=== PATIENT | male | born 1980 | race Caucasian/White ===

== ENCOUNTER 2018-04-05 09:52 | Observation (INO) | payer SELFPAY ==
[~2018-04-05 09:52] MED LIST: LIDOCAINE 2% INJ-PF (20 MG/ML) 2 ML AMPUL ONE
[2018-04-05] MEDS ORDERED: NORMAL SALINE 1000 ML 1,000 ML IV ONE (10:16)
--- NOTE | 2018-04-05 10:18 | ER Document Report ---
ED Medical Screen (RME) - General Chief Complaint: Abscess Stated Complaint: RIGHT HIP SWELLING Time Seen by Provider: 04/05/18 10:14 Notes: 38 years old uncontrolled type 1 diabetes presents today with elevated blood sugar and pilonidal cyst. He has an extensive history of pilonidal cyst including multiple surgery as well as drainage. Denies any fever chills or other constitutional symptoms. TRAVEL OUTSIDE OF THE [place] IN LAST 30 DAYS: No - Related Data Allergies/Adverse Reactions: Penicillins Allergy (Severe, Verified 04/05/18 09:55) Hives Past Medical History - Past Medical History Cardiac Medical History: Denies: Hx Coronary Artery Disease, Hx Heart Attack, Hx Hypertension Pulmonary Medical History: Reports: Hx Pneumonia Denies: Hx Asthma, Hx Bronchitis, Hx COPD, Hx Tuberculosis Neurological Medical History: Reports: Hx Seizures - diabetic . Denies: Hx Cerebrovascular Accident Endocrine Medical History: Reports: Hx Diabetes Mellitus Type 1 Musculoskeltal Medical History: Denies Hx Arthritis Psychiatric Medical History: Denies: Hx Depression Past Surgical History: Reports: Hx Bowel Surgery, Hx Oral Surgery - Immunizations Hx Diphtheria, Pertussis, Tetanus Vaccination: Yes Physical Exam - Vital signs Vitals: Temp Pulse Resp BP Pulse Ox 98.5 F 107 H 16 129/78 H 98 04/05/18 10:02 04/05/18 10:02 04/05/18 10:02 04/05/18 10:02 04/05/18 10:02 Course - Vital Signs Vital signs: Temp Pulse Resp BP Pulse Ox 98.5 F 107 H 16 129/78 H 98 04/05/18 10:02 04/05/18 10:02 04/05/18 10:02 04/05/18 10:02 04/05/18 10:02
[2018-04-05 11:17] LABS: VENOUS BLOOD BASE EXCESS 3.3 mmol/L; VENOUS BLOOD HCO3 30.8 mmol/L (20-32); VENOUS BLOOD PCO2 59.3 mmHg (35-63); VENOUS BLOOD PH 7.33 (7.30-7.42)
[2018-04-05 11:19] LABS: ABSOLUTE BASOPHILS # (AUTO) 0.1 10^3/uL (0.0-0.2); ABSOLUTE EOSINOPHILS # (AUTO) 0.4 10^3/uL (0.0-0.6); ABSOLUTE LYMPHOCYTES (AUTO) 2.2 10^3/uL (0.5-4.7); ABSOLUTE MONOCYTES (AUTO) 1.1 10^3/uL (0.1-1.4); ABSOLUTE NEUT (AUTO) 10.7 10^3/uL (1.7-8.2); BASOPHILS % (AUTO) 0.5 % (0-2); HEMATOCRIT 34.3 % (37.9-51.0); HEMOGLOBIN 11.6 g/dL (13.5-17.0); LYMPHOCYTES % (AUTO) 15.2 % (13-45); MEAN CORPUSCULAR HEMOGLOBIN 29.8 pg (27.0-33.4); MEAN CORPUSCULAR VOLUME 88 fl (80-97); MONOCYTES % (AUTO) 7.4 % (3-13); PLATELET COUNT 411 10^3/uL (150-450); RED BLOOD COUNT 3.91 10^6/uL (4.35-5.55); RED CELL DISTRIBUTION WIDTH 14.1 % (11.5-14.0); SEGMENTED NEUTROPHILS % (AUTO) 73.9 % (42-78); TOTAL CELLS COUNTED % (AUTO) 100 %; WHITE BLOOD COUNT 14.5 10^3/uL (4.0-10.5)
[2018-04-05 11:40] LABS: ALANINE AMINOTRANSFERASE 25 U/L (21-72); ALBUMIN 2.9 g/dL (3.5-5.0); ALKALINE PHOSPHATASE 190 U/L (38-126); ANION GAP 9 (5-19); ASPARTATE AMINO TRANSFERASE 17 U/L (17-59); BILIRUBIN,DIRECT 0.2 mg/dL (0.0-0.4); BILIRUBIN,TOTAL 0.2 mg/dL (0.2-1.3); BLOOD UREA NITROGEN 21 mg/dL (7-20); CALCIUM 9.1 mg/dL (8.4-10.2); CARBON DIOXIDE 29 mmol/L (22-30); CHLORIDE 102 mmol/L (98-107); GLUCOSE 264 mg/dL (75-110); POTASSIUM 4.9 mmol/L (3.6-5.0); SODIUM 140.2 mmol/L (137-145); TOTAL PROTEIN 5.8 g/dL (6.3-8.2)
--- NOTE | 2018-04-05 12:03 | ER Document Report ---
ED General <LIZETHSHERITA Maxwell - Last Filed: 04/05/18 13:32> - General Mode of Arrival: Ambulatory Information source: Patient TRAVEL OUTSIDE OF THE [place] IN LAST 30 DAYS: No <JUAN CARLOS WADDELL - Last Filed: 04/05/18 14:03> - General Chief Complaint: Abscess Stated Complaint: RIGHT HIP SWELLING Time Seen by Provider: 04/05/18 10:14 Notes: Patient is a 38-year-old male with type 1 diabetes and history of recurrent perirectal abscesses presents emergency department complaining of rectal pain and swelling onset the last few days. Patient states he had a rectal drain placed approximately 1-2 years ago due to having recurrent perirectal abscesses. He states he began to have worsening pain and swelling around the area of his rectal drain over the last couple of days, further stating the initial swelling was approximately the size of a quarter that has significantly worsened. Patient states he has not seen anyone regarding his rectal fistula in over a year due to his provider leaving. Patient health up with Dr. Erickson concerning his diabetes. (JUAN CARLOS WADDELL) - Related Data Allergies/Adverse Reactions: Penicillins Allergy (Severe, Verified 04/05/18 09:55) Hives Past Medical History - General Information source: Patient - Social History Smoking Status: Current Every Day Smoker Chew tobacco use (# tins/day): No Frequency of alcohol use: None Drug Abuse: None Family History: Reviewed & Not Pertinent Patient has suicidal ideation: No Patient has homicidal ideation: No Pulmonary Medical History: Reports: Hx Pneumonia Neurological Medical History: Reports: Hx Seizures - diabetic Endocrine Medical History: Reports: Hx Diabetes Mellitus Type 1 Past Surgical History: Reports: Hx Bowel Surgery, Hx Oral Surgery - Immunizations Hx Diphtheria, Pertussis, Tetanus Vaccination: Yes <JUAN CARLOS WADDELL - Last Filed: 04/05/18 14:03> Review of Systems - Review of Systems Constitutional: No symptoms reported EENT: No symptoms reported Cardiovascular: No symptoms reported Respiratory: No symptoms reported Gastrointestinal: See HPI Genitourinary: No symptoms reported Male Genitourinary: No symptoms reported Musculoskeletal: See HPI Skin: No symptoms reported Hematologic/Lymphatic: No symptoms reported Neurological/Psychological: No symptoms reported -: Yes All other systems reviewed and negative <JUAN CARLOS WADDELL - Last Filed: 04/05/18 14:03> Physical Exam <SHERITA STANLEY - Last Filed: 04/05/18 13:32> <JUAN CARLOS WADDELL - Last Filed: 04/05/18 14:03> - Vital signs Vitals: Temp Pulse Resp BP Pulse Ox 98.5 F 107 H 16 129/78 H 98 04/05/18 10:02 04/05/18 10:02 04/05/18 10:02 04/05/18 10:02 04/05/18 10:02 - Notes Notes: GENERAL: Alert, interacts well. No acute distress. HEAD: Normocephalic, atraumatic. EYES: Pupils equal, round, and reactive to light. Extraocular movements intact. ENT: Oral mucosa moist, tongue midline. NECK: Full range of motion. Supple. Trachea midline. LUNGS: Clear to auscultation bilaterally, no wheezes, rales, or rhonchi. No respiratory distress. HEART: Regular rate and rhythm. No murmurs, gallops, or rubs. ABDOMEN: Soft, non-tender. Non-distended. Bowel sounds present in all 4 quadrants. EXTREMITIES: Moves all 4 extremities spontaneously. No edema, radial and dorsalis pedis pulses 2/4 bilaterally. No cyanosis. NEUROLOGICAL: Alert and oriented x3. Normal speech. PSYCH: Normal affect, normal mood. SKIN: Warm, dry, normal turgor. No rashes or lesions noted. RECTAL: Right upper buttocks near buttocks cleft contains a round, firm area of swelling and erythema that is approximately 3cm in size, exquisitely tender to palpation. There are drains placed medially to the area of swelling. (JUAN CARLOS WADDELL) Course - Laboratory Result Diagrams: 04/05/18 11:05 04/05/18 11:05 - Consults Dr. Alcantar Time consulted: 12:10 Consulted provider: will come to ER <SHERITA STANLEY - Last Filed: 04/05/18 13:32> - Laboratory Result Diagrams: 04/05/18 11:05 04/05/18 11:05 <JUAN CARLOS WADDELL - Last Filed: 04/05/18 14:03> - Vital Signs Vital signs: Temp Pulse Resp BP Pulse Ox 98.5 F 107 H 16 129/78 H 98 04/05/18 10:02 04/05/18 10:02 04/05/18 10:02 04/05/18 10:02 04/05/18 10:02 - Laboratory Laboratory results interpreted by me: 04/05/18 04/05/18 11:05 11:05 WBC 14.5 H RBC 3.91 L Hgb 11.6 L Hct 34.3 L RDW 14.1 H Absolute Neutrophils 10.7 H BUN 21 H Glucose 264 H Alkaline Phosphatase 190 H Total Protein 5.8 L Albumin 2.9 L Discharge - Discharge Admitting Provider: Surgicalist Unit Admitted: Surgical Floor <SHERITA STANLEY - Last Filed: 04/05/18 13:32> <JUAN CARLOS WADDELL - Last Filed: 04/05/18 14:03> - Discharge Clinical Impression: Abscess of right buttock Condition: Stable Disposition: ADMITTED INPATIENT Scribe Attestation: 04/05/18 12:50 I personally performed the services described in the documentation, reviewed and edited the documentation which was dictated to the scribe in my presence, and it accurately records my words and actions. (SHERITA STANLEY) Scribe Documentation - Scribe Written by Breee:: Velia Carpenter, 04/05/2018 12:14 acting as scribe for :: Lizeth <JUAN CARLOS WADDELL - Last Filed: 04/05/18 14:03>
[2018-04-05] MEDS ORDERED: MORPHINE SULFATE 10 MG/ML INJ IV ONE (12:04)
[2018-04-05] MEDS ORDERED: ONDANSETRON HCL INJ/PF 4 MG/2 ML SDV IV ONE (12:04)
[2018-04-05] MEDS ORDERED: NORMAL SALINE 1000 ML 1,000 ML IV PRN (14:18)
[2018-04-05] MEDS ORDERED: METRONIDAZOLE 500 MG/NS RTU 500 MG/100 ML RTUPB IV ONE (15:00)
[2018-04-05] MEDS ORDERED: CIPROFLOXACIN 400 MG/D5W RTU 400 MG/200 ML RTUPB IV ONE (15:00)
--- NOTE | 2018-04-05 15:06 | PDOC H&P ---
History of Present Illness Admission Date/PCP: 04/05/18 14:01 Patient complains of: left kathe-anal pains History of Present Illness: VANGIE LOPEZ is a 38 year old male who had previous I&D of kathe-anal abscess in 2013 then referred to [facility] colorectal surgeon. DM type 1 since childhood. C/o Pains left kathe-anal area for past 3 days and getting worse today. Denies fever/chills. No diarrhea/constipation. Past Medical History Cardiac Medical History: Denies: Coronary Artery Disease, Myocardial Infarction, Hypertension Pulmonary Medical History: Reports: Pneumonia Denies: Asthma, Bronchitis, Chronic Obstructive Pulmonary Disease (COPD), Tuberculosis Neurological Medical History: Reports: Seizures - diabetic Endocrine Medical History: Reports: Diabetes Mellitus Type 1 Musculoskeltal Medical History: Denies: Arthritis Psychiatric Medical History: Denies: Depression Hematology: Denies: Anemia Past Surgical History Past Surgical History: Reports: Other - I&D kathe-anal abscess Social History Smoking Status: Current Every Day Smoker Frequency of Alcohol Use: None Hx Recreational Drug Use: No Hx Prescription Drug Abuse: No Family History Family History: Reviewed & Not Pertinent Parental Family History Reviewed: Yes Children Family History Reviewed: No Sibling(s) Family History Reviewed.: No Medication/Allergy Home Medications: Insulin Aspart [Novolog Flexpen] 0 unit SUBCUT .SLD SCALE 07/26/14 Insulin Degludec [Tresiba Flextouch U-200] 30 unit SUBCUT QPM 04/05/18 Allergies/Adverse Reactions: Penicillins Allergy (Severe, Verified 04/05/18 09:55) Hives Review of Systems Constitutional: PRESENT: as per HPI Eyes: PRESENT: other - no visual/hearing changes Cardiovascular: PRESENT: other - no chest pains/cough Gastrointestinal: PRESENT: as per HPI Genitourinary: PRESENT: other - no dysuria Neurological: PRESENT: other - no seizures Physical Exam Vital Signs: Temp Pulse Resp BP Pulse Ox 98.5 F 107 H 16 129/78 H 98 04/05/18 10:02 04/05/18 10:02 04/05/18 10:02 04/05/18 10:02 04/05/18 10:02 General appearance: PRESENT: mild distress Head exam: PRESENT: atraumatic Eye exam: PRESENT: conjunctiva pink Mouth exam: PRESENT: moist Neck exam: PRESENT: full ROM Respiratory exam: PRESENT: clear to auscultation zan Cardiovascular exam: PRESENT: RRR Pulses: PRESENT: normal radial pulses Vascular exam: PRESENT: normal capillary refill GI/Abdominal exam: PRESENT: soft Rectal exam: PRESENT: other - has tender swelling left kathe-anal area Extremities exam: PRESENT: full ROM Musculoskeletal exam: PRESENT: ambulatory Neurological exam: PRESENT: alert, oriented to person, oriented to place, oriented to time, oriented to situation Psychiatric exam: PRESENT: appropriate affect Skin exam: PRESENT: normal color, warm Assessment & Plan - Time Time Spent: 30 to 50 Minutes - Inpatient Certification Medical Necessity: Need For IV Fluids, Need for Pain Control, Need for IV Antibiotics, Need for Surgery - Plan Summary Plan Summary: IV antibiotics For I&D in the OR today
[2018-04-05] MEDS: KETOROLAC TROMETHAMINE INJ/PF 30 MG/1 ML SDV IV PRN (16:29)
[2018-04-05] MEDS ORDERED: KETAMINE HCL INJ 500 MG/10 ML VIAL ONE (17:39)
[2018-04-05] MEDS ORDERED: FENTANYL CITRATE INJ/PF 100 MCG/2 ML AMPUL ONE (17:39)
[2018-04-05] MEDS ORDERED: MIDAZOLAM 2 MG/2 ML INJ ONE (17:40)
[2018-04-05] MEDS ORDERED: PROPOFOL INJ 200 MG/20 ML VIAL IV ONE (17:40)
[2018-04-05] MEDS: LIDOCAINE 0.5% INJ-PF (5 MG/ML) 50 ML SDV ONE ×2 (17:58→18:21)
[2018-04-05] MEDS ORDERED: PROMETHAZINE HCL INJ 25 MG/1 ML VIAL IV PRN (18:31)
[2018-04-05] MEDS ORDERED: FENTANYL CITRATE INJ/PF 100 MCG/2 ML AMPUL IV PRN ×3 (18:31)
[2018-04-05] MEDS ORDERED: DIPHENHYDRAMINE HCL 50 MG/ML VIAL IV PRN (18:31)
[2018-04-05] MEDS ORDERED: DEXTROSE 40% GEL 15 GM TUBE PO PRN ×2 (19:46→20:26)
[2018-04-05] MEDS ORDERED: DEXTROSE 40% GEL 15 GM TUBE X 2 PO PRN ×2 (19:46→20:26)
[2018-04-05] MEDS ORDERED: GLUCAGON,HUMAN RECOMB 1 MG INJ IM PRN ×2 (19:46→20:26)
[2018-04-05] MEDS ORDERED: DEXTROSE 50%-WATER SYRINGE 25 GM/50 ML DOSE IV PRN ×2 (19:46→20:26)
[2018-04-05] MEDS ORDERED: DEXTROSE 50%-WATER SYRINGE 12.5 GM/25 ML DOSE IV PRN ×2 (19:46→20:26)
[2018-04-05] MEDS ORDERED: INSULIN LISPRO 100 UNIT/ML 3 ML VIAL SUBCUT PRN (20:26)
[2018-04-05] MEDS: METRONIDAZOLE 500 MG/NS RTU 500 MG/100 ML RTUPB IV SCH (21:56)
--- NOTE | 2018-04-06 01:32 | OPERATIVE REPORT E ---
Operative Report NAME: VANGIE LOPEZ : 1980 AGE: 38Y DATE OF SURGERY: 04/05/2018 ROOM: 425 PREOPERATIVE DIAGNOSES: 1. ABSCESS OF THE RIGHT PERIANAL AREA. 2. HISTORY OF PLACEMENT OF SETON FOR ANAL FISTULA BY DR. VILLA IN 2013. POSTOPERATIVE DIAGNOSES: 1. ABSCESS OF THE RIGHT PERIANAL AREA. 2. HISTORY OF PLACEMENT OF SETON FOR ANAL FISTULA BY DR. VILLA IN 2013. PROCEDURE: Incision and drainage of right perianal abscess. SURGEON: BRYSON MARTÍNEZ M.D. ANESTHESIA: Local MAC. INDICATION: This is a 38-year-old male who apparently had a perianal abscess with placement of vessel loops by Dr. Villa in 2013. The patient then transferred to [facility] and saw a colorectal surgeon there, but has since left. The patient apparently has not seen any other surgeons but Dr. Villa. In the past 3 days the patient is complaining of pain along the right perianal area and went to the ED where he was noted to have an abscess along the right perianal area. DESCRIPTION OF PROCEDURE: After adequate IV sedation the patient was placed in prone position and the perianal was then prepped and draped in the usual sterile fashion. Appropriate timeout was called. Next the abscess area was then injected with 0.5% Xylocaine and a transverse incision made and a gush of purulent material was noted. Cultures were obtained. The abscess cavity appears to be adjacent to a seton or a vessel loop that appears to be not involving the fistula itself. There are actually vessel loops on this right lateral side going towards the mid part of the fistula. A vessel loop was passed from the rectum of the posterior area of the midline going towards the common opening on the mid proximal area which is about 2.5 cm from the fistula opening in the mid rectal area. The vessel loop appears going underneath the sphincter, because of this it was left in place. The one on the right lateral area, since there were 2, one was cut and removed and left the one intact. No other evidence of fistula was noted on the rectal examination. Next the operative site, which was about 2 cm long was then packed with *------* gauze. The depth of the cavity appears to be right at the subcu and on top of the fascia. Sterile 4 x 4s were placed over the I and D site. The plan is to give the patient IV antibiotics and do sitz baths on discharge in a.m. He will be referred back to Dr. Villa in the surgical clinic. DICTATING PHYSICIAN: BRYSON MARTÍNEZ M.D. [id number] PHY#: [id number] ID: [id number] JOB#: [id number] ACCT: [id number] cc:BRYSON MARTÍNEZ M.D. >
[2018-04-06] MEDS ORDERED: CIPROFLOXACIN 400 MG/D5W RTU 400 MG/200 ML RTUPB IV SCH (06:00)
[2018-04-06] MEDS: METRONIDAZOLE 500 MG/NS RTU 500 MG/100 ML RTUPB IV SCH ×2 (06:37→13:18)
[2018-04-06] MEDS: KETOROLAC TROMETHAMINE INJ/PF 30 MG/1 ML SDV IV PRN ×2 (07:00→13:13)
[2018-04-06] MEDS: INSULIN LISPRO 100 UNIT/ML 3 ML VIAL SUBCUT PRN ×2 (07:01→11:52)
[2018-04-06 12:18] VITALS: BP 158/69
== END 2018-04-06 16:01 | disposition home or self-care (01) ==
LOC: ER 09:52 → INTOOBSV 14:01 → EH 14:01 → 4S 15:46
PROVIDERS: ADMIT Surgery; ATTEND Surgery
PROC: 0D9Q0ZZ Drainage of Anus, Open Approach (ICD-10-PCS; principal; 2018-04-05 16:30)
DX: K61.0 Anal abscess (principal); E10.65 Type 1 diabetes mellitus with hyperglycemia; F17.200 Nicotine dependence, unspecified, uncomplicated; Z98.890 Other specified postprocedural states
CPT/HCPCS: 99284; 96361; 96374; 96375; 36415; 87070; 87205; 82010; 82962 ×2; 85025; 87075; 87077; 80053; 87186; 82803; 46050; G0378 ×2; A6266; J2250; J3010; J1815; J3490 ×3; J1885 ×2; J2270; J2405; J7030; J2704; J0744 ×2; 902

== ENCOUNTER 2019-01-16 22:23 | Emergency (ER) | payer SELFPAY ==
--- NOTE | 2019-01-17 02:05 | RADIOLOGY REPORT (SQ) ---
EXAM DESCRIPTION: XR KNEE 4 OR MORE VIEWS COMPLETED DATE/TME: 01/17/2019 00:37 CLINICAL HISTORY: 39 years, Male, bone tenderness COMPARISON: None. FINDINGS: No fracture or dislocation. Soft tissues are unremarkable. IMPRESSION: No acute abnormality.
[2019-01-17] MEDS ORDERED: ACETAMINOPHEN 325 MG TABLET PO ONE (02:09)
--- NOTE | 2019-01-17 02:11 | ER Document Report ---
HPI - HPI Patient complains to provider of: left knee pain Time Seen by Provider: 01/17/19 01:17 Onset: This afternoon Onset/Duration: Sudden, Constant Quality of pain: Achy Severity: Mild Pain Level: 2 Exacerbated by: Standing, Movement, Walking Relieved by: Remaining still Similar symptoms previously: No Recently seen / treated by doctor: No - ROS Systems Reviewed and Negative: Yes All other systems reviewed and negative - MUSCULOSKELETAL Musculoskeletal: REPORTS: Extremity pain - DERM Skin Color: Normal Past Medical History - General Information source: Patient - Social History Smoking Status: Unknown if Ever Smoked Frequency of alcohol use: None Drug Abuse: None Family History: Reviewed & Not Pertinent - Past Medical History Cardiac Medical History: Denies: Hx Coronary Artery Disease, Hx Heart Attack, Hx Hypertension Pulmonary Medical History: Reports: Hx Pneumonia Denies: Hx Asthma, Hx Bronchitis, Hx COPD, Hx Tuberculosis Neurological Medical History: Reports: Hx Seizures - diabetic . Denies: Hx Cerebrovascular Accident Endocrine Medical History: Reports: Hx Diabetes Mellitus Type 1 Renal/ Medical History: Denies: Hx Peritoneal Dialysis Musculoskeletal Medical History: Denies Hx Arthritis Psychiatric Medical History: Denies: Hx Depression Past Surgical History: Reports: Hx Bowel Surgery, Hx Oral Surgery, Other - I&D kathe-anal abscess - Immunizations Hx Diphtheria, Pertussis, Tetanus Vaccination: Yes Vertical Provider Document - CONSTITUTIONAL Agree With Documented VS: Yes Exam Limitations: No Limitations General Appearance: WD/WN - INFECTION CONTROL TRAVEL OUTSIDE OF THE [place] IN LAST 30 DAYS: No - HEENT HEENT: Atraumatic Course - Re-evaluation Re-evalutation: Category Date Time Status jae [Immobilize Extrem/Crutch (ED)] NOW Care 01/17/19 02:30 Active KNEE LEFT 4 VIEW [RAD] Stat Exams 01/17/19 00:37 Completed Acetaminophen [Tylenol 325 mg Tablet] Med 01/17/19 02:09 Discontinued 975 mg PO NOW ONE - Vital Signs Vital signs: Temp Pulse Resp BP Pulse Ox 98 F 94 20 138/96 H 98 01/16/19 23:28 01/16/19 23:28 01/16/19 23:28 01/16/19 23:28 01/16/19 23:28 Temp Pulse Pulse Resp BP BP Pulse Ox 01/17/19 02:56 98.0 F 98 18 128/75 H 98 01/16/19 23:28 98 F 94 20 138/96 H 98 01/16/19 22:42 98.5 F 117 H 20 173/81 H 98 - Diagnostic Test Radiology reviewed: Image reviewed, Reports reviewed Radiology results interpreted by me: Knee X-Ray 01/17/19 00:37 IMPRESSION: No acute abnormality. Discharge - Discharge Clinical Impression: Left knee pain Qualifiers: Chronicity: acute Qualified Code(s): M25.562 - Pain in left knee Condition: Good Disposition: HOME, SELF-CARE Instructions: Ice & Elevation ([facility]), Suspected Internal Knee Injury ([facility]), Sprained Knee ([facility]) Additional Instructions: Follow-up with PCP/Ortho in 1 to 2 days. Return for any worsening symptoms. tylenol or motrin as needed for any pain or fever if not allergic. take the medication as prescribed. Ice, elevate, or rest your knee. Nonweightbearing for the next few days and/or then weightbearing as tolerated until seen by PCP/Ortho
[2019-01-17 02:57] VITALS: BP 128/75
== END 2019-01-17 02:49 | disposition home or self-care (01) ==
LOC: ER 22:23
DX: M25.562 Pain in left knee (principal); E10.9 Type 1 diabetes mellitus without complications
CPT/HCPCS: 99283

== ENCOUNTER 2019-07-10 21:40 | Emergency (ER) | payer SELFPAY ==
[2019-07-10 22:41] LABS: ABSOLUTE MONOCYTES (AUTO) 0.5 10^3/uL (0.1-1.4); ABSOLUTE NEUT (AUTO) 10.1 10^3/uL (1.7-8.2); BASOPHILS % (AUTO) 0.2 % (0-2); HEMATOCRIT 34.9 % (37.9-51.0); HEMOGLOBIN 11.7 g/dL (13.5-17.0); LYMPHOCYTES % (AUTO) 8.3 % (13-45); MEAN CORPUSCULAR HEMOGLOBIN 28.4 pg (27.0-33.4); MEAN CORPUSCULAR HGB CONC 33.4 g/dL (32.0-36.0); MEAN CORPUSCULAR VOLUME 85 fl (80-97); MONOCYTES % (AUTO) 4.6 % (3-13); PLATELET COUNT 385 10^3/uL (150-450); RED BLOOD COUNT 4.12 10^6/uL (4.35-5.55); RED CELL DISTRIBUTION WIDTH 14.4 % (11.5-14.0); SEGMENTED NEUTROPHILS % (AUTO) 86.9 % (42-78); TOTAL CELLS COUNTED % (AUTO) 100 %; WHITE BLOOD COUNT 11.6 10^3/uL (4.0-10.5)
[2019-07-10 22:58] LABS: ALBUMIN 2.6 g/dL (3.5-5.0); ALKALINE PHOSPHATASE 134 U/L (38-126); ANION GAP 8 (5-19); ASPARTATE AMINO TRANSFERASE 33 U/L (17-59); BILIRUBIN,DIRECT 0.2 mg/dL (0.0-0.4); BILIRUBIN,TOTAL 0.2 mg/dL (0.2-1.3); BLOOD UREA NITROGEN 21 mg/dL (7-20); CALCIUM 8.3 mg/dL (8.4-10.2); CARBON DIOXIDE 23 mmol/L (22-30); CHLORIDE 105 mmol/L (98-107); CREATINE KINASE 357 U/L (55-170); GLUCOSE 141 mg/dL (75-110); POTASSIUM 4.8 mmol/L (3.6-5.0)
[2019-07-10 23:02] LABS: TOTAL PROTEIN 5.8 g/dL (6.3-8.2)
[2019-07-10] MEDS ORDERED: NORMAL SALINE 1000 ML 1,000 ML IV ONE (23:25)
[2019-07-10] MEDS ORDERED: ACETAMINOPHEN 325 MG TABLET PO ONE (23:26)
[2019-07-10 23:27] LABS: CREATINE KINASE MB 0.73 ng/mL (<4.55); TROPONIN I 0.026 ng/mL
[2019-07-10] MEDS ORDERED: ONDANSETRON HCL INJ/PF 4 MG/2 ML SDV IV ONE (23:32)
--- NOTE | 2019-07-10 23:46 | ER Document Report ---
Entered by MARIA FERNANDA ALDANA SCRIBE 07/10/19 2144 Acting as scribe for:ANTWON VILLATORO IV, MD ED General - General Chief Complaint: Chest Pain Stated Complaint: CHEST PAINS,NAUSEA,LIGHT HEADED Time Seen by Provider: 07/10/19 23:20 Information source: Patient Notes: 39-year-old male presents to the emergency department complaining of chest pain that began last night. Patient describes his pain as intermittent, stabbing and "resonating in the stomach to chest area". Patient reports that his pain was worse yesterday. Patient states that he feels no pain now. Patient reports fever, nausea and vomiting. Patient denies shortness of breath, cough and diarrhea. Patient denies sick contact. Patient recalls that two months ago he was diagnosed with a "bacteria infection in the stomach" and was put on antibiotics. DDx: diverticulitis, gastroenteritis, appendicitis, dehydration, influenza and viral syndrome. TRAVEL OUTSIDE OF THE [place] IN LAST 30 DAYS: No - Related Data Allergies/Adverse Reactions: Penicillins Allergy (Severe, Verified 04/05/18 09:55) Hives Home Medications: ATORVASTATIN, LISINOPRIL, METOPROLOL, FUROSEMIDE Past Medical History - General Information source: Patient - Social History Smoking Status: Current Every Day Smoker Cigarette use (# per day): Yes Chew tobacco use (# tins/day): No Frequency of alcohol use: None Drug Abuse: None Family History: Reviewed & Not Pertinent Patient has suicidal ideation: No Patient has homicidal ideation: No - Past Medical History Cardiac Medical History: Reports: Hx Hypertension Pulmonary Medical History: Reports: Hx Pneumonia Neurological Medical History: Reports: Hx Seizures - diabetic Endocrine Medical History: Reports: Hx Diabetes Mellitus Type 1 Past Surgical History: Reports: Hx Bowel Surgery, Hx Oral Surgery, Other - I&D kathe-anal abscess - Immunizations Hx Diphtheria, Pertussis, Tetanus Vaccination: Yes Review of Systems - Review of Systems Constitutional: See HPI, Fever EENT: No symptoms reported Cardiovascular: See HPI, Chest pain Respiratory: See HPI, Cough. denies: Short of breath Gastrointestinal: See HPI, Abdominal pain, Nausea, Vomiting. denies: Diarrhea Genitourinary: No symptoms reported Male Genitourinary: No symptoms reported Musculoskeletal: No symptoms reported Skin: No symptoms reported Hematologic/Lymphatic: No symptoms reported Neurological/Psychological: No symptoms reported -: Yes All other systems reviewed and negative Physical Exam - Vital signs Vitals: Temp Pulse Resp BP Pulse Ox 102.0 F H 140 H 20 107/61 98 07/10/19 21:54 07/10/19 21:54 07/10/19 21:54 07/10/19 21:54 07/10/19 21:54 - Notes Notes: Physical Exam: General: Alert, appears well. HEENT: Normocephalic. Atraumatic. PERRL. Extraocular movements intact. Oropharynx clear. Neck: Supple. Non-tender. Respiratory: No respiratory distress. Clear and equal breath sounds bilaterally. Cardiovascular: Tachycardic. Abdominal: Normal Inspection. Non-tender. No distension. Normal Bowel Sounds. Back: No gross abnormalities. Extremities: Moves all four extremities. Upper extremities: Normal inspection. Normal ROM. Lower extremities: Normal inspection. No edema. Normal ROM. Neurological: Normal cognition. AAOx4. Normal speech. Psychological: Normal affect. Normal Mood. Skin: Warm. Mildly diaphoretic. Normal color. Course - Re-evaluation Re-evalutation: 07/11/19 03:51 Results of ED MSE discussed with patient and patient's mother. All questions were answered. Emergency signs and symptoms, reasons to return to the emergency department discussed with patient and patient's mother. - Vital Signs Vital signs: Temp Pulse Resp BP Pulse Ox 99.3 F 140 H 22 H 120/69 96 07/11/19 01:52 07/10/19 21:54 07/11/19 03:06 07/11/19 03:06 07/11/19 03:06 - Laboratory Result Diagrams: 07/10/19 22:26 07/10/19 22:26 Laboratory results interpreted by me: 07/10/19 07/10/19 07/10/19 22:22 22:26 22:26 WBC 11.6 H RBC 4.12 L Hgb 11.7 L Hct 34.9 L RDW 14.4 H Lymph % (Auto) 8.3 L Absolute Neuts (auto) 10.1 H Seg Neutrophils % 86.9 H Sodium 136.1 L BUN 21 H Creatinine 1.73 H Est GFR ( Amer) 54 L Est GFR (MDRD) Non-Af 44 L Glucose 141 H POC Glucose 139 H Calcium 8.3 L Alkaline Phosphatase 134 H Creatine Kinase 357 H Total Protein 5.8 L Albumin 2.6 L Lipase 07/10/19 22:26 WBC RBC Hgb Hct RDW Lymph % (Auto) Absolute Neuts (auto) Seg Neutrophils % Sodium BUN Creatinine Est GFR ( Amer) Est GFR (MDRD) Non-Af Glucose POC Glucose Calcium Alkaline Phosphatase Creatine Kinase Total Protein Albumin Lipase < 10.0 L - Diagnostic Test Radiology reviewed: Reports reviewed - EKG Interpretation by Me Additional EKG results interpreted by me: 07/11/19 03:51 EKG obtained on 07/10/2019 at 2145 hrs. was interpreted by this MD. Findings: Sinus tachycardia, heart rate 133, normal axis, P waves proceed QRS complexes, QRS complexes appear narrow, there are no obviously visible patterns of ST segment elevation or depression present to suggest acute myocardial ischemia or infarction. Impression: Sinus tachycardia with nonspecific ST segments. Discharge - Discharge Clinical Impression: Dehydration, Renal insufficiency Fever Qualifiers: Fever type: unspecified Qualified Code(s): R50.9 - Fever, unspecified Condition: Good Disposition: HOME, SELF-CARE Additional Instructions: Return to the Emergency Department without delay if any worse. Follow up with your doctor on 07/11/19. HOME CARE INSTRUCTIONS & INFORMATION: Thank you for choosing us for your medical needs. We hope you're satisfied with the care you received. After you leave, you must properly care for your problem and, at the same time, observe its progress. Any condition can change. Some illnesses can change rapidly over hours or days. If your condition worsens, return to the Emergency Department or see your physician promptly. ABOUT YOUR X-RAYS AND EKG'S: If you had an EKG or X-rays taken, they have been read by the Emergency Physician. The X-rays and EKG's will also be read by a Radiologist or Pathology Transcriptionist within 24 hours. If discrepancies are noted, you will be notified by telephone. Please be certain the ED has a correct telephone number & address where you can be reached. Also, realize that some fractures or abnormalities do not show up on initial X-rays. If your symptoms continue, see your physician. ABOUT YOUR LABORATORY TEST: If you had laboratory tests, the results have been reviewed by the Emergency Physician. Some test results (for example cultures) may not be available for several days. You will be contacted if any test result shows you need additional treatment. Please be certain the ED has a correct telephone number and address where you can be reached. ABOUT YOUR MEDICATIONS: You will receive instructions on how to take your medicine on the prescription label you receive. Additional information may be provided by the Pharmacy. If you have questions afterwards, call the ED for clarification or further instructions. Some prescribed medications may cause drowsiness. Do not perform tasks such as driving a car or operating machinery without consulting your Pharmacist. If you feel you need a refill of pain medication, your condition will need re-evaluation. Please do not call for a refill of any medication. ABOUT YOUR SIGNATURE: Signature of this document acknowledges to followin. Understanding that you received emergency treatment and that you may be released before al medical problems are known or treated. Please be certain the ED has a correct phone number & address where you can be reached. 2. Acknowledgement that you will arrange for follow-up care as recommended. 3. Authorization for the Emergency Physician to provide information to your follow-up Physician in order to maximize your care. AT ANY TIME, IF YOUR SYMPTOMS CHANGE SIGNIFICANTLY OR WORSEN OR YOU DEVELOP NEW SYMPTOMS, RETURN TO THE EMERGENCY DEPARTMENT IMMEDIATELY FOR RE-EVALUATION. OUR GOAL IS TO PROVIDE EXCELLENT MEDICAL CARE! WE HOPE THAT WE HAVE MET YOUR EXPECTATIONS DURING YOUR EMERGENCY DEPARTMENT VISIT AND THAT YOU FEEL YOU HAVE RECEIVED EXCELLENT CARE! Fever Fever is the body's reaction to infection. Fever can also occur with illnesses that create fever-producing substances in the body. By itself, fever is not harmful. It helps the body fight invading germs. We are more concerned with: (1) What's causing the fever? (2) How can we keep you more comfortable until the fever goes away? Early in an illness, symptoms are often so vague that a diagnosis can't be made. If the doctor hasn't identified a clear cause for your fever, you will probably develop new symptoms within the next two days. Contact the doctor if you develop severe worsening headache, rash, chest pain, cough with yellow or green sputum, difficulty breathing, abdominal pain, or other new symptoms. There is no reason to treat a fever if you're comfortable. If the fever is causing aches, headache, and fatigue, you can treat it with ibuprofen (Advil, Nuprin, etc) or acetaminophen (Tylenol). Follow the directions on the bottle. Get plenty of liquids (three quarts per day). Rest. Physical work or sports will raise the temperature higher and make you feel much worse. Dress lightly. If you're chilling, this means the temperature is trying to go higher. Take ibuprofen or acetaminophen. When you feel sweaty and "feverish" the temperature is coming down. If the fever doesn't go away within two days or if you become more ill, call the doctor or return at once for re-examination. Dehydration Dehydration can result from vomiting or diarrhea, fever, or decreased intake of fluids. If severe, hospitalization and intravenous fluids may be required. Most cases are treated at home with fluids by mouth. For the next 24 hours, drink lots of clear fluids. In mild cases, this can be soda pop or sports drinks. For more severe dehydration, the doctor may recommend special fluids such as Pedialyte or Lytren. Try to get three liters (3 quarts) of fluid per day. If vomiting occurs, continue to drink the fluids frequently (every 15 to 20 minutes), but in small amounts (one or two ounces). Depending on the type of dehydration, the doctor may prescribe antinausea medicine or potassium replacements. Call the doctor or return for re-examination if you become progressively weak, vomit repeatedly, or have other new symptoms. Kidney Function Abnormality Your evaluation has shown an abnormality of your kidney function. An abn ormal kidney function test can be caused by dehydration, acute kidney damage, blood vessel disease (such as with diabetes or chronic high blood pressure), or just old age. If the abnormality is caused by an acute disease, it may reverse completely. Have a repeat test. If it's normal, don't worry about your kidneys. If you have a chronic kidney problem, you must be careful with medicines and medical tests. Be sure any doctor who prescribes medicine or orders tests knows that your kidney tests have been abnormal. Some medicines must have the dose reduced, other medicines must be avoided. If the doctor has recommended further workup, be sure to follow up as instructed. Call us if you have new flank pain, vomiting, confusion, or if you're unable to urinate. Prescriptions: Ondansetron [Zofran Odt 4 mg Tablet] 1 tab PO Q8HP PRN #15 tab.rapdis PRN Reason: For Nausea/Vomiting I personally performed the services described in the documentation, reviewed and edited the documentation which was dictated to the scribe in my presence, and it accurately records my words and actions.
[2019-07-11 00:48] LABS: A TYPE INFLUENZA AG NEGATIVE (NEGATIVE); B INFLUENZA AG NEGATIVE (NEGATIVE)
--- NOTE | 2019-07-11 01:01 | RADIOLOGY REPORT (SQ) ---
EXAM DESCRIPTION: XR CHEST 1 VIEW COMPLETED DATE/TME: 07/10/2019 22:07 CLINICAL HISTORY: 39 years, Male, chest pain COMPARISON: None. NUMBER OF VIEWS: Single TECHNIQUE: LIMITATIONS: None. FINDINGS: Cardiomediastinal silhouette is top normal. Lungs grossly clear. No effusion. No pneumothorax. Visualized bones are unremarkable IMPRESSION: No acute intrathoracic process is identified copyright 2010 [employer]- All Rights Reserved
--- NOTE | 2019-07-11 02:44 | RADIOLOGY REPORT (SQ) ---
CLINICAL INDICATION: llq pain, fever. . TECHNIQUE: Contrast enhanced spiral axial CT imaging was obtained of the abdomen and pelvis with multiplanar reconstructions. This exam was performed according to our departmental dose-optimization program, which includes automated exposure control, adjustment of the mA and/or kV according to patient size and/or use of iterative reconstruction techniques. Additional delayed phase imaging COMPARISON: April 20, 2014. Images only. No report CORRELATION: None. FINDINGS: Abdomen: The lung bases demonstrate mild dependent atelectasis, progressive from prior. The heart is of normal size. No evidence of pleural or pericardial fluid. The liver is of normal size contour and attenuation. The gallbladder is nondistended without inflammatory change. The pancreas is unremarkable. The spleen is unremarkable. The adrenals are unremarkable. The kidneys appear grossly normal without evidence of urolithiasis or hydronephrosis. There is no evidence of free air. No free fluid. No bulky adenopathy. Abdominal aorta is nonaneurysmal. Pelvis: The bowel is nonobstructed. No focal inflammatory change. Pelvic contents are unremarkable. The appendix is normal. Postsurgical changes of the level the rectum, similar to prior Visualized bones are unremarkable. IMPRESSION: No acute intra-abdominal process identified. The cause of the patient's left lower quadrant pain is not identified on this examination..
[2019-07-11 04:25] VITALS: BP 116/74
--- NOTE | 2019-07-11 18:16 | EKG REPORT ---
SEVERITY:- OTHERWISE NORMAL ECG - SINUS TACHYCARDIA : Confirmed by: Leo De Los Santos 11-Jul-2019 18:15:26
== END 2019-07-11 04:42 | disposition home or self-care (01) ==
LOC: ER 21:40
DX: R50.9 Fever, unspecified (principal); E86.0 Dehydration; N28.9 Disorder of kidney and ureter, unspecified; R07.9 Chest pain, unspecified; R11.2 Nausea with vomiting, unspecified; R10.9 Unspecified abdominal pain; R05 Cough; R00.0 Tachycardia, unspecified; I10 Essential (primary) hypertension; E10.9 Type 1 diabetes mellitus without complications; F17.210 Nicotine dependence, cigarettes, uncomplicated; Z79.899 Other long term (current) drug therapy; Z88.0 Allergy status to penicillin
CPT/HCPCS: 93005; 99285; 96361; 96374; 36415; 87040; 82553; 82962; 82550; 83605; 83690; 85025; 80053; 84484; 87804; 71045; 74177; 93010; J2405; J7030